=== PATIENT | female | born 1985 | race African-American/Black ===

== ENCOUNTER 2018-10-23 10:47 | Inpatient (IN) ==
[2018-10-23] MEDS ORDERED: ONDANSETRON 4 MG/2 ML VIAL IV STA ×2 (11:16→13:22)
[2018-10-23] MEDS ORDERED: MORPHINE 4 MG/1 ML VIAL IV STA (11:16)
[2018-10-23 11:30] LABS: Basophils # 0.1 10*3/uL (0.0-0.2); Basophils % 0.3 % (0.0-0.8); Eosinophils # 0.2 10*3/uL (0.0-0.87); Eosinophils % 0.9 % (0.00-10.9); Hematocrit 37.7 VOL% (35.7-47.0); Hemoglobin 12.8 GM/DL (12.0-16.0); Immature Granulocytes % 0.5 %; Lymphocytes # 2.6 10*3/uL (1.4-4.0); Lymphocytes % 11.9 % (21.3-54.2); Mean Corpuscular Hemoglobin 31 PG (27-34); Mean Corpuscular Volume 91.7 FL (87-102); Monocytes # 1.1 10*3/uL (0.11-0.8); Monocytes % 5.1 % (1.7-12.7); Neutrophils # 17.6 10*3/uL (1.4-7.4); Neutrophils % 81.3 % (38.7-73.9); Platelet Count 362 T/CUMM (130-400); Red Blood Count 4.11 MC/CUMM (3.8-5.5); Red Cell Distribution Width 13.2 % (9.3-17.3); White Blood Count 21.6 T/CUMM (4-12)
[2018-10-23 11:50] LABS: Amorphous Crystals,Urine Occasional /HPF (Few); Apearance,Urine Slightly Hazy (Clear); Bilirubin,Urine Negative (Negative); Blood, Urine Large mg/dL (Negative); Glucose,Urine (UA) Negative (Negative); Ketones,Urine Negative (Negative); Mucus,Urine Occasional /LPF (Occasional); Nitrite,Urine Negative (Negative); Protein,Urine 100 MG/DL; RBC,Urine 39 /HPF (0-4); Squamous Epithelial Cell,Urine Occasional /HPF (0-10); Urine Color Yellow (Yellow); Urine Specific Gravity 1.014 (1.001-1.035); Urine Urobilinogen < 2.0 EU/DL (0.2-1.0)
[2018-10-23 12:04] LABS: Albumin 3.1 G/DL (3.4-5.0); Bilirubin,Total 0.4 MG/DL (0.2-1.0); Calcium 8.5 MG/DL (8.5-10.1); Osmolality,Calculated 278.5 MOS/KG (273-304); Total Protein 7.8 G/DL (6.4-8.3)
[2018-10-23] MEDS ORDERED: hydrALAZINE 20 MG/1 ML VIAL IV STA (12:05)
[2018-10-23] MEDS ORDERED: MORPHINE 10 MG/1 ML VIAL IV ONE (12:05)
[2018-10-23 12:53] LABS: Eosinophils 1 % (0-10); Lymphocytes 12 % (20-55); Platelet Estimate Normal; Segmented Neutrophils 82 % (50-85); Total Cells Counted 100
[2018-10-23] MEDS ORDERED: HYDROmorphone 2 MG/1 ML VIAL IV STA (13:22)
[2018-10-23] MEDS ORDERED: cefTRIAXone 1,000 MG in SODIUM CHLORIDE 0.9% 100 ML IV STA (13:26)
[2018-10-23] MEDS ORDERED: niCARdipine 25 MG/10 ML VIAL IV ONE (13:40)
[2018-10-23] MEDS: niCARdipine INJ 50 MG in SODIUM CHLORIDE 0.9% 230 ML IV PRN ×3 (14:19→23:09)
[2018-10-23] MEDS ORDERED: cloNIDine 0.1 MG TABLET PO STA (14:58)
[2018-10-23] MEDS ORDERED: SODIUM CHLORIDE 0.9% 1,000 ML IV SCH (15:00)
[2018-10-23] MEDS: MORPHINE 4 MG/1 ML VIAL IV PRN ×2 (16:16→19:47)
[2018-10-23] MEDS: FUROSEMIDE 40 MG TABLET PO SCH (17:26)
[2018-10-23] MEDS: CARVEDILOL 12.5 MG TABLET PO SCH ×2 (17:26→21:19)
[2018-10-23] MEDS: ONDANSETRON 4 MG/2 ML VIAL IV PRN (19:50)
[2018-10-23] MEDS: MONTELUKAST 10 MG TABLET PO SCH (21:19)
[2018-10-23] MEDS: ACETAMINOPHEN 325 MG TABLET PO PRN (21:23)
[2018-10-24] MEDS: ONDANSETRON 4 MG/2 ML VIAL IV PRN ×2 (02:10→21:16)
[2018-10-24] MEDS: MORPHINE 4 MG/1 ML VIAL IV PRN ×4 (02:13→21:16)
[2018-10-24] MEDS: niCARdipine INJ 50 MG in SODIUM CHLORIDE 0.9% 230 ML IV PRN ×5 (02:50→22:20)
[2018-10-24 04:53] LABS: Basophils % 0.1 % (0.0-0.8); Eosinophils % 0.1 % (0.00-10.9); Hemoglobin 11.8 GM/DL (12.0-16.0); Immature Granulocytes % 0.4 %; Immature Granulocytes Absolute 0.07 #; Lymphocytes # 1.4 10*3/uL (1.4-4.0); Lymphocytes % 7.8 % (21.3-54.2); Mean Corpuscular HGB Conc 32.8 GM/DL (32-36); Mean Corpuscular Hemoglobin 31 PG (27-34); Mean Corpuscular Volume 94.2 FL (87-102); Mean Platelet Volume 10.4 FL (9.6-12.0); Monocytes # 1.1 10*3/uL (0.11-0.8); Monocytes % 6.1 % (1.7-12.7); Neutrophils # 14.8 10*3/uL (1.4-7.4); Neutrophils % 85.5 % (38.7-73.9); Platelet Count 309 T/CUMM (130-400); Red Blood Count 3.82 MC/CUMM (3.8-5.5); Red Cell Distribution Width 13.4 % (9.3-17.3); White Blood Count 17.4 T/CUMM (4-12)
[2018-10-24 05:12] LABS: Calcium 8.4 MG/DL (8.5-10.1); Osmolality,Calculated 280.4 MOS/KG (273-304)
[2018-10-24] MEDS: PANTOPRAZOLE 40 MG TABLET PO SCH (08:22)
[2018-10-24] MEDS: CARVEDILOL 12.5 MG TABLET PO SCH ×2 (08:22→21:16)
[2018-10-24] MEDS: FUROSEMIDE 40 MG TABLET PO SCH ×2 (08:22→15:00)
[2018-10-24] MEDS: LISINOPRIL 10 MG TABLET PO SCH (08:22)
[2018-10-24] MEDS: POTASSIUM CHLORIDE 20 MEQ TABLET PO SCH (08:22)
[2018-10-24] MEDS: cefTRIAXone 1,000 MG in SYRINGE 1 EACH IV SCH (14:55)
[2018-10-24] MEDS: MONTELUKAST 10 MG TABLET PO SCH (21:16)
[2018-10-24] MEDS: ACETAMINOPHEN 325 MG TABLET PO PRN (23:45)
[2018-10-25] MEDS: niCARdipine INJ 50 MG in SODIUM CHLORIDE 0.9% 230 ML IV PRN ×2 (04:30→12:00)
[2018-10-25 04:37] LABS: Calcium 8.2 MG/DL (8.5-10.1); Osmolality,Calculated 273.8 MOS/KG (273-304); Potassium 4.1 MMOL/L (3.5-5.1)
[2018-10-25] MEDS: ONDANSETRON 4 MG/2 ML VIAL IV PRN (05:05)
[2018-10-25] MEDS: LISINOPRIL 10 MG TABLET PO SCH (08:10)
[2018-10-25] MEDS: FUROSEMIDE 40 MG TABLET PO SCH ×2 (08:11→15:53)
[2018-10-25] MEDS: POTASSIUM CHLORIDE 20 MEQ TABLET PO SCH (08:11)
[2018-10-25] MEDS: PANTOPRAZOLE 40 MG TABLET PO SCH (08:11)
[2018-10-25] MEDS: CARVEDILOL 12.5 MG TABLET PO SCH ×2 (08:11→20:25)
[2018-10-25] MEDS ORDERED: DEXTROSE 50% 25 GM/50 ML SYRINGE IV PRN (08:29)
[2018-10-25] MEDS ORDERED: GLUCAGON 1 MG VIAL IM PRN (08:29)
[2018-10-25] MEDS: cefTRIAXone 1,000 MG in SYRINGE 1 EACH IV SCH (13:50)
[2018-10-25] MEDS: MONTELUKAST 10 MG TABLET PO SCH (20:24)
[2018-10-26 08:47] LABS: Basophils # 0.1 10*3/uL (0.0-0.2); Basophils % 0.3 % (0.0-0.8); Eosinophils # 0.2 10*3/uL (0.0-0.87); Eosinophils % 1.3 % (0.00-10.9); Hematocrit 29.7 VOL% (35.7-47.0); Hemoglobin 9.9 GM/DL (12.0-16.0); Immature Granulocytes % 0.3 %; Immature Granulocytes Absolute 0.05 #; Lymphocytes # 2.2 10*3/uL (1.4-4.0); Lymphocytes % 13.8 % (21.3-54.2); Mean Corpuscular HGB Conc 33.3 GM/DL (32-36); Mean Corpuscular Hemoglobin 31 PG (27-34); Mean Corpuscular Volume 94.3 FL (87-102); Mean Platelet Volume 9.5 FL (9.6-12.0); Monocytes # 1.1 10*3/uL (0.11-0.8); Monocytes % 6.9 % (1.7-12.7); Neutrophils # 12.2 10*3/uL (1.4-7.4); Neutrophils % 77.4 % (38.7-73.9); Platelet Count 309 T/CUMM (130-400); Red Blood Count 3.15 MC/CUMM (3.8-5.5); Red Cell Distribution Width 13.4 % (9.3-17.3); White Blood Count 15.8 T/CUMM (4-12)
[2018-10-26 09:18] LABS: Alanine Aminotransferase 14 U/L (13-56); Albumin 2.7 G/DL (3.4-5.0); Alkaline Phosphatase 68 U/L (45-117); Aspartate Amino Transferase 10 U/L (0-37); Bilirubin,Total < 0.39 MG/DL (0.2-1.0); Blood Urea Nitrogen 14 MG/DL (7-18); Calcium 8.6 MG/DL (8.5-10.1); Glucose 101 MG/DL (74-106); Osmolality,Calculated 270.1 MOS/KG (273-304); Potassium 4.3 MMOL/L (3.5-5.1); Sodium 135 MMOL/L (136-145); Total Protein 7.6 G/DL (6.4-8.3)
[2018-10-26] MEDS: POTASSIUM CHLORIDE 20 MEQ TABLET PO SCH (09:32)
[2018-10-26] MEDS: PANTOPRAZOLE 40 MG TABLET PO SCH (09:32)
[2018-10-26] MEDS: CARVEDILOL 12.5 MG TABLET PO SCH (09:32)
[2018-10-26] MEDS: FUROSEMIDE 40 MG TABLET PO SCH ×2 (09:32→16:36)
[2018-10-26] MEDS: LISINOPRIL 10 MG TABLET PO SCH (09:34)
[2018-10-26] MEDS ORDERED: CARVEDILOL 12.5 MG TABLET PO ONE (11:40)
[2018-10-26] MEDS: cefTRIAXone 1,000 MG in SYRINGE 1 EACH IV SCH (12:31)
[2018-10-26] MEDS ORDERED: hydrALAZINE 20 MG/1 ML VIAL IV PRN (13:50)
[2018-10-26] MEDS: hydrALAZINE 20 MG/1 ML VIAL IV SCH ×2 (16:36→22:05)
[2018-10-26] MEDS: CARVEDILOL 25 MG TABLET PO SCH (21:17)
[2018-10-26] MEDS: MONTELUKAST 10 MG TABLET PO SCH (21:17)
[2018-10-27] MEDS: hydrALAZINE 20 MG/1 ML VIAL IV SCH ×3 (04:00→17:15)
[2018-10-27 04:47] LABS: Basophils # 0.1 10*3/uL (0.0-0.2); Basophils % 0.3 % (0.0-0.8); Eosinophils # 0.2 10*3/uL (0.0-0.87); Hematocrit 30.2 VOL% (35.7-47.0); Immature Granulocytes % 0.4 %; Immature Granulocytes Absolute 0.06 #; Lymphocytes # 2.2 10*3/uL (1.4-4.0); Lymphocytes % 14.2 % (21.3-54.2); Mean Corpuscular HGB Conc 33.1 GM/DL (32-36); Mean Corpuscular Hemoglobin 31 PG (27-34); Mean Corpuscular Volume 93.2 FL (87-102); Mean Platelet Volume 10.2 FL (9.6-12.0); Monocytes # 1.1 10*3/uL (0.11-0.8); Neutrophils # 11.8 10*3/uL (1.4-7.4); Neutrophils % 77.1 % (38.7-73.9); Platelet Count 373 T/CUMM (130-400); Red Blood Count 3.24 MC/CUMM (3.8-5.5); Red Cell Distribution Width 13.3 % (9.3-17.3); White Blood Count 15.3 T/CUMM (4-12)
[2018-10-27 05:04] LABS: Calcium 8.9 MG/DL (8.5-10.1); Osmolality,Calculated 273.8 MOS/KG (273-304); Potassium 4.3 MMOL/L (3.5-5.1)
[2018-10-27] MEDS: CARVEDILOL 25 MG TABLET PO SCH ×2 (08:50→21:04)
[2018-10-27] MEDS: FUROSEMIDE 40 MG TABLET PO SCH ×2 (08:50→17:10)
[2018-10-27] MEDS: TELMISARTAN 40 MG TABLET PO SCH (08:50)
[2018-10-27] MEDS: PANTOPRAZOLE 40 MG TABLET PO SCH (08:50)
[2018-10-27] MEDS: POTASSIUM CHLORIDE 20 MEQ TABLET PO SCH (08:50)
[2018-10-27] MEDS: ACETAMINOPHEN 325 MG TABLET PO PRN (08:56)
[2018-10-27] MEDS ORDERED: LISINOPRIL 20 MG TABLET PO SCH (09:00)
[2018-10-27] MEDS ORDERED: LISINOPRIL 10 MG TABLET PO ONE (11:41)
[2018-10-27] MEDS: cefTRIAXone 1,000 MG in SYRINGE 1 EACH IV SCH (13:08)
[2018-10-27] MEDS: MONTELUKAST 10 MG TABLET PO SCH (21:04)
[2018-10-28] MEDS ORDERED: LABETALOL 20 MG/4 ML SYRINGE IV SCH
[2018-10-28] MEDS: hydrALAZINE 10 MG TABLET PO SCH ×2 (01:16→08:28)
[2018-10-28 04:08] VITALS: BP 139/94
[2018-10-28 04:37] LABS: Basophils # 0.1 10*3/uL (0.0-0.2); Basophils % 0.3 % (0.0-0.8); Eosinophils # 0.2 10*3/uL (0.0-0.87); Eosinophils % 1.2 % (0.00-10.9); Hematocrit 31.6 VOL% (35.7-47.0); Hemoglobin 10.4 GM/DL (12.0-16.0); Immature Granulocytes % 0.4 %; Immature Granulocytes Absolute 0.07 #; Lymphocytes # 2.6 10*3/uL (1.4-4.0); Lymphocytes % 15.8 % (21.3-54.2); Mean Corpuscular HGB Conc 32.9 GM/DL (32-36); Mean Corpuscular Hemoglobin 31 PG (27-34); Mean Corpuscular Volume 92.7 FL (87-102); Mean Platelet Volume 10.1 FL (9.6-12.0); Monocytes # 1.4 10*3/uL (0.11-0.8); Monocytes % 8.2 % (1.7-12.7); Neutrophils # 12.2 10*3/uL (1.4-7.4); Neutrophils % 74.1 % (38.7-73.9); Platelet Count 409 T/CUMM (130-400); Red Blood Count 3.41 MC/CUMM (3.8-5.5); Red Cell Distribution Width 13.2 % (9.3-17.3); White Blood Count 16.5 T/CUMM (4-12)
[2018-10-28 04:54] LABS: Calcium 9.2 MG/DL (8.5-10.1); Osmolality,Calculated 273.8 MOS/KG (273-304)
[2018-10-28] MEDS: CARVEDILOL 25 MG TABLET PO SCH (08:28)
[2018-10-28] MEDS: POTASSIUM CHLORIDE 20 MEQ TABLET PO SCH (08:28)
[2018-10-28] MEDS: PANTOPRAZOLE 40 MG TABLET PO SCH (08:28)
[2018-10-28] MEDS: FUROSEMIDE 40 MG TABLET PO SCH (08:28)
[2018-10-28] MEDS: TELMISARTAN 40 MG TABLET PO SCH (08:28)
[2018-10-28] MEDS: ACETAMINOPHEN 325 MG TABLET PO PRN (10:12)
[2018-10-28] MEDS ORDERED: LACTULOSE 20 GM/30 ML UDCUP PO ONE (10:30)
== END 2018-10-28 13:38 | disposition home or self-care (01) | DRG 468 ==
LOC: EDUNIT# → EDBD → N.ED 10:47 → N.2E 15:42 → SUATTDRO 15:42 → N.3E 15:54 → N.CC 16:09
PROVIDERS: ADMIT Internal Medicine; ATTEND Internal Medicine

== ENCOUNTER 2019-10-18 14:26 | Inpatient (IN) ==
[2019-10-18] MEDS ORDERED: HYDROmorphone 2 MG/1 ML VIAL IV STA (14:43)
[2019-10-18] MEDS ORDERED: ONDANSETRON 4 MG/2 ML VIAL IV STA (14:43)
[2019-10-18] MEDS ORDERED: SODIUM CHLORIDE 0.9% 1,000 ML IV STA (14:43)
[2019-10-18] MEDS ORDERED: fentaNYL 100 MCG/2 ML VIAL IV STA ×3 (14:45→16:44)
[2019-10-18 15:07] LABS: Basophils % 0.2 % (0.0-0.8); Eosinophils % 0.1 % (0.00-10.9); Hematocrit 41.1 VOL% (35.7-47.0); Hemoglobin 14.4 GM/DL (12.0-16.0); Immature Granulocytes % 0.4 %; Immature Granulocytes Absolute 0.08 #; Lymphocytes % 10.7 % (21.3-54.2); Mean Corpuscular Volume 88.2 FL (87-102); Monocytes % 4.4 % (1.7-12.7); Neutrophils % 84.2 % (38.7-73.9); Platelet Count 404 T/CUMM (130-400); Red Blood Count 4.66 MC/CUMM (3.8-5.5); Red Cell Distribution Width 15.5 % (9.3-17.3); White Blood Count 18.8 T/CUMM (4-12)
[2019-10-18 15:28] LABS: Albumin 3.3 G/DL (3.4-5.0); Bilirubin,Total 0.7 MG/DL (0.2-1.0); Calcium 8.8 MG/DL (8.5-10.1); Osmolality,Calculated 269.1 MOS/KG (273-304); Total Protein 8.5 G/DL (6.4-8.3)
[2019-10-18] MEDS ORDERED: PROMETHAZINE 25 MG/1 ML VIAL ONE (15:53)
[2019-10-18 15:59] LABS: Apearance,Urine CLEAR (Clear); Bacteria,Urine Occasional /HPF (Few); Bilirubin,Urine Negative (Negative); Blood, Urine Negative (Negative); Glucose,Urine (UA) Negative (Negative); Ketones,Urine Negative (Negative); Mucus,Urine Occasional /LPF (Occasional); Nitrite,Urine Negative (Negative); Protein,Urine 100 MG/DL; RBC,Urine 1 /HPF (0-4); Squamous Epithelial Cell,Urine Occasional /HPF (0-10); Urine Color Yellow (Yellow); Urine Specific Gravity 1.015 (1.001-1.035); WBC,Urine 3 /HPF (0-6)
[2019-10-18] MEDS ORDERED: PROMETHAZINE 25 MG/1 ML VIAL IM STA (16:09)
[2019-10-18] MEDS ORDERED: niCARdipine INJ 25 MG in SODIUM CHLORIDE 0.9% 240 ML IV PRN (16:44)
[2019-10-18] MEDS ORDERED: niCARdipine 25 MG/10 ML VIAL IV ONE ×2 (16:53→19:10)
[2019-10-18] MEDS ORDERED: LACTULOSE 20 GM/30 ML UDCUP PO PRN (17:28)
[2019-10-18] MEDS ORDERED: PROMETHAZINE 25 MG/1 ML VIAL IM PRN (17:28)
[2019-10-18] MEDS: HYDROmorphone 2 MG/1 ML VIAL IV PRN (19:10)
[2019-10-18] MEDS ORDERED: BISMUTH SUBSALICYLATE 30 ML/524 MG 240 ML/BOTTLE PO PRN (19:31)
[2019-10-18] MEDS ORDERED: ACETAMINOPHEN 325 MG TABLET PO PRN (19:31)
[2019-10-18] MEDS ORDERED: niCARdipine INJ 50 MG in SODIUM CHLORIDE 0.9% 480 ML IV PRN (20:06)
[2019-10-18] MEDS: cefTRIAXone 1,000 MG in SYRINGE 1 EACH IV SCH (20:24)
[2019-10-18] MEDS: SODIUM CHLORIDE 0.9% 1,000 ML IV SCH (20:30)
[2019-10-18] MEDS: MONTELUKAST 10 MG TABLET PO SCH (20:30)
[2019-10-18] MEDS: FUROSEMIDE 40 MG TABLET PO SCH (20:31)
[2019-10-18] MEDS: carvediloL 12.5 MG TABLET PO SCH (20:31)
[2019-10-18] MEDS: hydrALAZINE 25 MG TABLET PO SCH (20:31)
[2019-10-18] MEDS: traMADol 50 MG TABLET PO PRN (21:08)
[2019-10-19 06:26] LABS: Basophils % 0.2 % (0.0-0.8); Eosinophils % 0.1 % (0.00-10.9); Hematocrit 40.7 VOL% (35.7-47.0); Hemoglobin 13.5 GM/DL (12.0-16.0); Immature Granulocytes % 0.4 %; Lymphocytes # 1.9 10*3/uL (1.4-4.0); Lymphocytes % 7.9 % (21.3-54.2); Mean Corpuscular HGB Conc 33.2 GM/DL (32-36); Mean Corpuscular Volume 90.8 FL (87-102); Neutrophils % 84.4 % (38.7-73.9); Platelet Count 351 T/CUMM (130-400); Red Blood Count 4.48 MC/CUMM (3.8-5.5); Red Cell Distribution Width 15.5 % (9.3-17.3); White Blood Count 23.5 T/CUMM (4-12)
[2019-10-19 06:42] LABS: Calcium 8.3 MG/DL (8.5-10.1); Osmolality,Calculated 269.1 MOS/KG (273-304)
[2019-10-19 06:52] LABS: Lymphocytes 10 % (20-55); Segmented Neutrophils 86 % (50-85); Total Cells Counted 100
[2019-10-19 06:53] LABS: Hypochromasia 1+; Platelet Estimate Adequate
[2019-10-19] MEDS: hydrALAZINE 25 MG TABLET PO SCH ×2 (08:10→20:27)
[2019-10-19] MEDS: PANTOPRAZOLE 40 MG TABLET PO SCH (08:10)
[2019-10-19] MEDS: carvediloL 12.5 MG TABLET PO SCH ×2 (08:10→16:01)
[2019-10-19] MEDS: LOSARTAN 50 MG TABLET PO SCH (08:10)
[2019-10-19] MEDS: HYDROmorphone 2 MG/1 ML VIAL IV PRN ×2 (08:10)
[2019-10-19] MEDS: POTASSIUM CHLORIDE 20 MEQ TABLET PO SCH (08:10)
[2019-10-19] MEDS: FUROSEMIDE 40 MG TABLET PO SCH ×2 (08:10→16:01)
[2019-10-19] MEDS: ONDANSETRON 4 MG/2 ML VIAL IV PRN ×2 (08:16→12:47)
[2019-10-19] MEDS: traMADol 50 MG TABLET PO PRN ×2 (10:37→20:55)
[2019-10-19] MEDS: SODIUM CHLORIDE 0.9% 1,000 ML IV SCH (10:51)
[2019-10-19] MEDS: cefTRIAXone 1,000 MG in SYRINGE 1 EACH IV SCH (18:11)
[2019-10-19] MEDS: MONTELUKAST 10 MG TABLET PO SCH (20:27)
[2019-10-20] MEDS: SODIUM CHLORIDE 0.9% 1,000 ML IV SCH (05:21)
[2019-10-20 05:35] LABS: Basophils % 0.2 % (0.0-0.8); Eosinophils # 0.1 10*3/uL (0.0-0.87); Eosinophils % 0.3 % (0.00-10.9); Hematocrit 35.9 VOL% (35.7-47.0); Hemoglobin 11.9 GM/DL (12.0-16.0); Immature Granulocytes % 0.5 %; Immature Granulocytes Absolute 0.12 #; Lymphocytes # 1.9 10*3/uL (1.4-4.0); Mean Corpuscular HGB Conc 33.1 GM/DL (32-36); Monocytes % 6.1 % (1.7-12.7); Neutrophils % 84.9 % (38.7-73.9); Platelet Count 228 T/CUMM (130-400); Red Blood Count 3.86 MC/CUMM (3.8-5.5); Red Cell Distribution Width 15.5 % (9.3-17.3); White Blood Count 23.4 T/CUMM (4-12)
[2019-10-20 05:48] LABS: Band Neutrophils 1 % (0-10); Hypochromasia 1+; Lymphocytes 10 % (20-55); Segmented Neutrophils 83 % (50-85); Total Cells Counted 100
[2019-10-20 05:49] LABS: Macrocytosis Slight
[2019-10-20 06:14] LABS: Osmolality,Calculated 265.5 MOS/KG (273-304)
[2019-10-20] MEDS: traMADol 50 MG TABLET PO PRN (08:43)
[2019-10-20] MEDS: hydrALAZINE 25 MG TABLET PO SCH ×2 (08:43→20:50)
[2019-10-20] MEDS: PANTOPRAZOLE 40 MG TABLET PO SCH (08:46)
[2019-10-20] MEDS: POTASSIUM CHLORIDE 20 MEQ TABLET PO SCH (08:46)
[2019-10-20] MEDS: carvediloL 12.5 MG TABLET PO SCH ×2 (08:47→17:48)
[2019-10-20] MEDS: LOSARTAN 50 MG TABLET PO SCH (08:47)
[2019-10-20] MEDS: FUROSEMIDE 40 MG TABLET PO SCH ×2 (08:47→15:07)
[2019-10-20] MEDS: ONDANSETRON 4 MG/2 ML VIAL IV PRN (08:47)
[2019-10-20] MEDS ORDERED: DIAZEPAM 5 MG TABLET PO ONE (13:53)
[2019-10-20] MEDS: PIPERACILLIN/TAZOBACTAM 3,375 MG in SODIUM CHLORIDE 0.9% 100 ML IV SCH ×2 (15:07→20:49)
[2019-10-20] MEDS: MONTELUKAST 10 MG TABLET PO SCH (20:49)
[2019-10-21] MEDS: PIPERACILLIN/TAZOBACTAM 3,375 MG in SODIUM CHLORIDE 0.9% 100 ML IV SCH ×3 (04:59→21:32)
[2019-10-21 05:36] LABS: Basophils # 0.1 10*3/uL (0.0-0.2); Basophils % 0.2 % (0.0-0.8); Eosinophils # 0.1 10*3/uL (0.0-0.87); Eosinophils % 0.6 % (0.00-10.9); Hematocrit 35.6 VOL% (35.7-47.0); Hemoglobin 11.8 GM/DL (12.0-16.0); Immature Granulocytes Absolute 0.24 #; Lymphocytes # 2.3 10*3/uL (1.4-4.0); Lymphocytes % 9.5 % (21.3-54.2); Mean Corpuscular HGB Conc 33.1 GM/DL (32-36); Mean Corpuscular Volume 92.7 FL (87-102); Mean Platelet Volume 9.9 FL (9.6-12.0); Monocytes % 6.2 % (1.7-12.7); Neutrophils % 82.5 % (38.7-73.9); Platelet Count 301 T/CUMM (130-400); Red Blood Count 3.84 MC/CUMM (3.8-5.5); Red Cell Distribution Width 14.8 % (9.3-17.3); White Blood Count 24.1 T/CUMM (4-12)
[2019-10-21 06:07] LABS: Albumin 2.3 G/DL (3.4-5.0); Calcium 8.7 MG/DL (8.5-10.1); Osmolality,Calculated 268.1 MOS/KG (273-304); Total Protein 7.5 G/DL (6.4-8.3)
[2019-10-21 06:08] LABS: Eosinophils 4 % (0-10); Hypochromasia 1+; Lymphocytes 6 % (20-55); Platelet Estimate Adequate; Segmented Neutrophils 85 % (50-85); Total Cells Counted 100
[2019-10-21 06:09] LABS: Macrocytosis Slight
[2019-10-21] MEDS: carvediloL 12.5 MG TABLET PO SCH ×2 (08:45→16:09)
[2019-10-21] MEDS: hydrALAZINE 25 MG TABLET PO SCH ×2 (08:45→21:32)
[2019-10-21] MEDS: FUROSEMIDE 40 MG TABLET PO SCH ×2 (08:45→16:09)
[2019-10-21] MEDS: LOSARTAN 50 MG TABLET PO SCH (08:45)
[2019-10-21] MEDS: POTASSIUM CHLORIDE 20 MEQ TABLET PO SCH (08:46)
[2019-10-21] MEDS: PANTOPRAZOLE 40 MG TABLET PO SCH (08:46)
[2019-10-21] MEDS: traMADol 50 MG TABLET PO PRN (21:32)
[2019-10-21] MEDS: MONTELUKAST 10 MG TABLET PO SCH (21:32)
[2019-10-22] MEDS: SODIUM CHLORIDE 0.9% 1,000 ML IV SCH ×2 (02:20→13:00)
[2019-10-22 04:50] LABS: Basophils # 0.1 10*3/uL (0.0-0.2); Basophils % 0.3 % (0.0-0.8); Eosinophils # 0.2 10*3/uL (0.0-0.87); Eosinophils % 0.9 % (0.00-10.9); Hematocrit 33.8 VOL% (35.7-47.0); Hemoglobin 11.2 GM/DL (12.0-16.0); Immature Granulocytes % 0.6 %; Immature Granulocytes Absolute 0.13 #; Lymphocytes # 2.2 10*3/uL (1.4-4.0); Lymphocytes % 9.7 % (21.3-54.2); Mean Corpuscular HGB Conc 33.1 GM/DL (32-36); Mean Corpuscular Volume 91.6 FL (87-102); Mean Platelet Volume 9.4 FL (9.6-12.0); Monocytes % 6.4 % (1.7-12.7); Neutrophils % 82.1 % (38.7-73.9); Platelet Count 310 T/CUMM (130-400); Red Blood Count 3.69 MC/CUMM (3.8-5.5); Red Cell Distribution Width 14.5 % (9.3-17.3); White Blood Count 22.7 T/CUMM (4-12)
[2019-10-22] MEDS: PIPERACILLIN/TAZOBACTAM 3,375 MG in SODIUM CHLORIDE 0.9% 100 ML IV SCH ×3 (05:14→20:00)
[2019-10-22 05:16] LABS: Albumin 2.2 G/DL (3.4-5.0); Bilirubin,Total 1.3 MG/DL (0.2-1.0); Calcium 8.7 MG/DL (8.5-10.1); Osmolality,Calculated 269.1 MOS/KG (273-304); Total Protein 7.5 G/DL (6.4-8.3)
[2019-10-22 05:30] LABS: Anisocytosis Slight; Lymphocytes 13 % (20-55); Macrocytosis Slight; Platelet Estimate Normal; Segmented Neutrophils 82 % (50-85); Total Cells Counted 100
[2019-10-22] MEDS: FUROSEMIDE 40 MG TABLET PO SCH ×2 (08:25→16:03)
[2019-10-22] MEDS: carvediloL 12.5 MG TABLET PO SCH ×2 (08:25→16:03)
[2019-10-22] MEDS: POTASSIUM CHLORIDE 20 MEQ TABLET PO SCH (08:26)
[2019-10-22] MEDS: PANTOPRAZOLE 40 MG TABLET PO SCH (08:26)
[2019-10-22] MEDS: LOSARTAN 50 MG TABLET PO SCH (08:26)
[2019-10-22] MEDS: hydrALAZINE 25 MG TABLET PO SCH ×2 (08:26→20:01)
[2019-10-22] MEDS ORDERED: ONDANSETRON 4 MG/2 ML VIAL ONE (11:37)
[2019-10-22] MEDS ORDERED: HYDROmorphone 2 MG/1 ML VIAL ONE (11:37)
[2019-10-22] MEDS: HYDROmorphone 2 MG/1 ML VIAL IV PRN ×2 (11:40→11:45)
[2019-10-22] MEDS ORDERED: propofoL 200 MG/20 ML VIAL IV ONE (11:44)
[2019-10-22] MEDS ORDERED: KETAMINE 500 MG/10 ML VIAL ONE (11:44)
[2019-10-22] MEDS ORDERED: MIDAZOLAM 2 MG/2 ML VIAL ONE (11:45)
[2019-10-22] MEDS ORDERED: LIDOCAINE 2% 5 ML VIAL ONE (11:45)
[2019-10-22] MEDS ORDERED: fentaNYL 100 MCG/2 ML VIAL ONE (11:45)
[2019-10-22] MEDS ORDERED: SODIUM CHLORIDE 0.9% 100 ML IV ONE (11:45)
[2019-10-22] MEDS ORDERED: LACTATED RINGERS 1,000 ML IV ONE (11:45)
[2019-10-22] MEDS ORDERED: ONDANSETRON 4 MG/2 ML VIAL IV PRN (12:00)
[2019-10-22] MEDS: traMADol 50 MG TABLET PO PRN (18:28)
[2019-10-22] MEDS: MONTELUKAST 10 MG TABLET PO SCH (20:01)
[2019-10-23 05:00] LABS: Basophils # 0.1 10*3/uL (0.0-0.2); Basophils % 0.3 % (0.0-0.8); Eosinophils # 0.4 10*3/uL (0.0-0.87); Eosinophils % 2.4 % (0.00-10.9); Hematocrit 34.6 VOL% (35.7-47.0); Hemoglobin 11.6 GM/DL (12.0-16.0); Immature Granulocytes % 0.5 %; Immature Granulocytes Absolute 0.07 #; Lymphocytes # 2.4 10*3/uL (1.4-4.0); Mean Corpuscular HGB Conc 33.5 GM/DL (32-36); Mean Corpuscular Volume 90.6 FL (87-102); Mean Platelet Volume 9.7 FL (9.6-12.0); Monocytes % 6.8 % (1.7-12.7); Platelet Count 322 T/CUMM (130-400); Red Blood Count 3.82 MC/CUMM (3.8-5.5); Red Cell Distribution Width 14.5 % (9.3-17.3); White Blood Count 14.4 T/CUMM (4-12)
[2019-10-23 05:35] LABS: Albumin 2.2 G/DL (3.4-5.0); Bilirubin,Total 0.8 MG/DL (0.2-1.0); Calcium 8.8 MG/DL (8.5-10.1); Osmolality,Calculated 266.4 MOS/KG (273-304); Total Protein 7.3 G/DL (6.4-8.3)
[2019-10-23] MEDS: PIPERACILLIN/TAZOBACTAM 3,375 MG in SODIUM CHLORIDE 0.9% 100 ML IV SCH ×3 (05:50→20:50)
[2019-10-23] MEDS: LOSARTAN 50 MG TABLET PO SCH (08:53)
[2019-10-23] MEDS: FUROSEMIDE 40 MG TABLET PO SCH ×2 (08:53→17:10)
[2019-10-23] MEDS: PANTOPRAZOLE 40 MG TABLET PO SCH (08:53)
[2019-10-23] MEDS: POTASSIUM CHLORIDE 20 MEQ TABLET PO SCH (08:53)
[2019-10-23] MEDS: carvediloL 12.5 MG TABLET PO SCH ×2 (08:53→17:10)
[2019-10-23] MEDS: hydrALAZINE 25 MG TABLET PO SCH ×2 (08:53→20:50)
[2019-10-23] MEDS: SODIUM CHLORIDE 0.9% 1,000 ML IV SCH ×2 (11:37→11:38)
[2019-10-23] MEDS: MONTELUKAST 10 MG TABLET PO SCH (20:50)
[2019-10-23] MEDS: ONDANSETRON 4 MG/2 ML VIAL IV PRN (22:12)
[2019-10-24] MEDS: SODIUM CHLORIDE 0.9% 1,000 ML IV SCH ×2 (01:38→12:16)
[2019-10-24 05:59] LABS: Basophils # 0.1 10*3/uL (0.0-0.2); Basophils % 0.5 % (0.0-0.8); Eosinophils # 0.4 10*3/uL (0.0-0.87); Eosinophils % 2.9 % (0.00-10.9); Hematocrit 36.5 VOL% (35.7-47.0); Hemoglobin 12.1 GM/DL (12.0-16.0); Immature Granulocytes % 0.6 %; Immature Granulocytes Absolute 0.08 #; Lymphocytes # 2.7 10*3/uL (1.4-4.0); Lymphocytes % 21.4 % (21.3-54.2); Mean Corpuscular HGB Conc 33.2 GM/DL (32-36); Mean Corpuscular Volume 91.7 FL (87-102); Mean Platelet Volume 9.5 FL (9.6-12.0); Monocytes % 7.4 % (1.7-12.7); Neutrophils % 67.2 % (38.7-73.9); Platelet Count 361 T/CUMM (130-400); Red Blood Count 3.98 MC/CUMM (3.8-5.5); Red Cell Distribution Width 14.3 % (9.3-17.3); White Blood Count 12.6 T/CUMM (4-12)
[2019-10-24] MEDS: PIPERACILLIN/TAZOBACTAM 3,375 MG in SODIUM CHLORIDE 0.9% 100 ML IV SCH ×3 (06:03→20:13)
[2019-10-24 06:11] LABS: Albumin 2.3 G/DL (3.4-5.0); Bilirubin,Total 0.8 MG/DL (0.2-1.0); Calcium 9.3 MG/DL (8.5-10.1); Osmolality,Calculated 266.2 MOS/KG (273-304); Total Protein 7.6 G/DL (6.4-8.3)
[2019-10-24] MEDS: LOSARTAN 50 MG TABLET PO SCH (08:34)
[2019-10-24] MEDS: hydrALAZINE 25 MG TABLET PO SCH ×2 (08:34→20:10)
[2019-10-24] MEDS: POTASSIUM CHLORIDE 20 MEQ TABLET PO SCH (08:34)
[2019-10-24] MEDS: carvediloL 12.5 MG TABLET PO SCH ×2 (08:34→16:37)
[2019-10-24] MEDS: PANTOPRAZOLE 40 MG TABLET PO SCH (08:34)
[2019-10-24] MEDS: FUROSEMIDE 40 MG TABLET PO SCH ×2 (08:35→16:37)
[2019-10-24] MEDS: MONTELUKAST 10 MG TABLET PO SCH (20:10)
[2019-10-25] MEDS: PIPERACILLIN/TAZOBACTAM 3,375 MG in SODIUM CHLORIDE 0.9% 100 ML IV SCH (05:48)
[2019-10-25 07:37] LABS: Basophils # 0.1 10*3/uL (0.0-0.2); Basophils % 0.5 % (0.0-0.8); Eosinophils # 0.3 10*3/uL (0.0-0.87); Eosinophils % 2.1 % (0.00-10.9); Hematocrit 37.6 VOL% (35.7-47.0); Hemoglobin 12.3 GM/DL (12.0-16.0); Immature Granulocytes % 0.5 %; Immature Granulocytes Absolute 0.07 #; Lymphocytes # 2.7 10*3/uL (1.4-4.0); Lymphocytes % 18.2 % (21.3-54.2); Mean Corpuscular HGB Conc 32.7 GM/DL (32-36); Mean Corpuscular Volume 91.9 FL (87-102); Mean Platelet Volume 9.4 FL (9.6-12.0); Monocytes % 6.4 % (1.7-12.7); Neutrophils % 72.3 % (38.7-73.9); Platelet Count 428 T/CUMM (130-400); Red Blood Count 4.09 MC/CUMM (3.8-5.5); Red Cell Distribution Width 14.4 % (9.3-17.3)
[2019-10-25 08:10] LABS: Albumin 2.4 G/DL (3.4-5.0); Bilirubin,Total 0.4 MG/DL (0.2-1.0); Calcium 9.2 MG/DL (8.5-10.1); Osmolality,Calculated 268.1 MOS/KG (273-304)
[2019-10-25] MEDS: LOSARTAN 50 MG TABLET PO SCH (10:02)
[2019-10-25] MEDS: carvediloL 12.5 MG TABLET PO SCH (10:02)
[2019-10-25] MEDS: POTASSIUM CHLORIDE 20 MEQ TABLET PO SCH (10:02)
[2019-10-25] MEDS: hydrALAZINE 25 MG TABLET PO SCH (10:02)
[2019-10-25] MEDS: FUROSEMIDE 40 MG TABLET PO SCH (10:02)
[2019-10-25] MEDS: PANTOPRAZOLE 40 MG TABLET PO SCH (10:02)
[2019-10-25 11:36] VITALS: BP 132/96
== END 2019-10-25 13:20 | disposition home or self-care (01) ==
LOC: N.ED 14:26 → N.EDINP 17:25 → SUATTDRO 17:25 → N.ICU 18:09 → N.2E 10-19 13:35
PROVIDERS: ADMIT Internal Medicine; ATTEND Internal Medicine

== ENCOUNTER 2020-11-08 14:24 | Inpatient (IN) ==
[2020-11-08 15:15] LABS: Basophils # 0.1 10*3/uL (0.0-0.2); Basophils % 0.2 % (0.0-0.8); Eosinophils % 0.2 % (0.00-10.9); Hematocrit 40.1 VOL% (35.7-47.0); Hemoglobin 13.3 GM/DL (12.0-16.0); Immature Granulocytes % 0.7 %; Immature Granulocytes Absolute 0.17 #; Lymphocytes # 1.9 10*3/uL (1.4-4.0); Lymphocytes % 7.5 % (21.3-54.2); Mean Corpuscular HGB Conc 33.2 GM/DL (32-36); Mean Corpuscular Volume 95.2 FL (87-102); Mean Platelet Volume 8.9 FL (9.6-12.0); Monocytes % 4.3 % (1.7-12.7); Neutrophils % 87.1 % (38.7-73.9); Platelet Count 321 T/CUMM (130-400); Red Blood Count 4.21 MC/CUMM (3.8-5.5); Red Cell Distribution Width 15.1 % (9.3-17.3); White Blood Count 25.1 T/CUMM (4-12)
[2020-11-08 16:02] LABS: Anisocytosis 1+; Hypochromasia 1+; Lymphocytes 9 % (20-55); Polychromasia 1+; Segmented Neutrophils 87 % (50-85); Total Cells Counted 100
[2020-11-08 16:03] LABS: Albumin 3.1 G/DL (3.4-5.0); Bilirubin,Total 0.5 MG/DL (0.2-1.0); Calcium 8.3 MG/DL (8.5-10.1); Osmolality,Calculated 269.1 MOS/KG (273-304); Platelet Estimate Adequate; Potassium 4.1 MMOL/L (3.5-5.1); Total Protein 8.9 G/DL (5.0-7.5)
[2020-11-08] MEDS ORDERED: FUROSEMIDE 40 MG/4 ML VIAL IV STA (16:24)
[2020-11-08] MEDS ORDERED: DEXTROSE 50% 25 GM/50 ML VIAL IV PRN (17:42)
[2020-11-08] MEDS ORDERED: ZALEPLON 5 MG CAPSULE PO PRN (17:42)
[2020-11-08] MEDS ORDERED: DOCUSATE SODIUM 100 MG CAPSULE PO PRN (17:42)
[2020-11-08] MEDS ORDERED: GLUCAGON 1 MG VIAL IM PRN (17:42)
[2020-11-08] MEDS ORDERED: ONDANSETRON 4 MG/2 ML VIAL IV PRN (17:42)
[2020-11-08] MEDS ORDERED: hydrALAZINE 20 MG/1 ML VIAL IV PRN (17:42)
[2020-11-08 17:46] LABS: PT Patient Result 10.7 SECS (9.8-11.9)
[2020-11-08] MEDS ORDERED: MAGNESIUM SULF RIDER 2 GM in PREMIX 1 EACH IV PRN (17:50)
[2020-11-08] MEDS ORDERED: MAGNESIUM SULF RIDER 4 GM in PREMIX 1 EACH IV PRN (17:50)
[2020-11-08 17:52] LABS: Ferritin 69.4 ng/ml (8-252)
[2020-11-08] MEDS ORDERED: POTASSIUM CHLORIDE 20 MEQ TABLET PO PRN (17:52)
[2020-11-08] MEDS ORDERED: AZITHROMYCIN INJ 500 MG in SODIUM CHLORIDE 0.9% 250 ML IV SCH (18:00)
[2020-11-08] MEDS: ACETAMINOPHEN 325 MG TABLET PO PRN (20:48)
[2020-11-08] MEDS: hydrALAZINE 25 MG TABLET PO SCH (20:49)
[2020-11-08] MEDS: guaiFENesin/DM ER 600-30 MG TABLET PO SCH (20:49)
[2020-11-08] MEDS: ENOXAPARIN 40 MG/0.4 ML SYRINGE SUBCUT SCH (20:51)
[2020-11-08] MEDS: cefTRIAXone 1,000 MG in SYRINGE 1 EACH IV SCH (20:52)
[2020-11-09] MEDS: ACETAMINOPHEN 325 MG TABLET PO PRN (04:19)
[2020-11-09 05:20] LABS: Basophils # 0.1 10*3/uL (0.0-0.2); Basophils % 0.3 % (0.0-0.8); Eosinophils % 0.2 % (0.00-10.9); Hematocrit 38.3 VOL% (35.7-47.0); Hemoglobin 12.6 GM/DL (12.0-16.0); Immature Granulocytes % 0.5 %; Lymphocytes # 2.5 10*3/uL (1.4-4.0); Lymphocytes % 12.6 % (21.3-54.2); Mean Corpuscular HGB Conc 32.9 GM/DL (32-36); Mean Platelet Volume 9.7 FL (9.6-12.0); Monocytes % 3.6 % (1.7-12.7); NRBC # 0.05 10*3/uL; Neutrophils % 82.8 % (38.7-73.9); Platelet Count 308 T/CUMM (130-400); Red Blood Count 4.03 MC/CUMM (3.8-5.5); Red Cell Distribution Width 15.1 % (9.3-17.3); White Blood Count 19.5 T/CUMM (4-12)
[2020-11-09 06:07] LABS: Calcium 7.9 MG/DL (8.5-10.1); Osmolality,Calculated 279.5 MOS/KG (273-304); Potassium 3.5 MMOL/L (3.5-5.1); Risk Ratio 3.35; Thyroid Stimulating Hormone 1.21 uIU/ml (0.358-3.74)
[2020-11-09] MEDS ORDERED: FUROSEMIDE 40 MG/4 ML VIAL IV SCH (08:00)
[2020-11-09] MEDS: AZITHROMYCIN 250 MG TABLET PO SCH (08:27)
[2020-11-09] MEDS: LOSARTAN 50 MG TABLET PO SCH (08:28)
[2020-11-09] MEDS: POTASSIUM CHLORIDE 20 MEQ TABLET PO SCH (08:28)
[2020-11-09] MEDS: hydrALAZINE 25 MG TABLET PO SCH ×2 (08:28→21:06)
[2020-11-09] MEDS: PANTOPRAZOLE 40 MG TABLET PO SCH (08:28)
[2020-11-09] MEDS: carvediloL 25 MG TABLET PO SCH (08:28)
[2020-11-09] MEDS: guaiFENesin/DM ER 600-30 MG TABLET PO SCH ×2 (08:28→21:07)
[2020-11-09] MEDS: cefTRIAXone 1,000 MG in SYRINGE 1 EACH IV SCH (10:24)
[2020-11-09] MEDS: ENOXAPARIN 40 MG/0.4 ML SYRINGE SUBCUT SCH (10:25)
[2020-11-09] MEDS: THEOPHYLLINE ER (24 HR) 400 MG CAPSULE PO SCH (10:25)
[2020-11-09 13:51] LABS: ABG HCO3 26.2 MMOL/L (20-26); ABG Oxygen Saturation 97.6 % (95-100); ABG PCO2 43.9 MM HG (35-48); ABG PH 7.401 (7.35-7.45); ABG PO2 93.6 MM HG (80-95); ABG TCO2 23.9 MMOL/L (23-27)
[2020-11-09] MEDS: BUDESONIDE/FORMOTEROL 160-4.5 INHALER 6 GM INH SCH (21:07)
[2020-11-10 05:47] LABS: Basophils # 0.1 10*3/uL (0.0-0.2); Basophils % 0.3 % (0.0-0.8); Eosinophils # 0.1 10*3/uL (0.0-0.87); Eosinophils % 0.8 % (0.00-10.9); Hematocrit 36.1 VOL% (35.7-47.0); Hemoglobin 12.1 GM/DL (12.0-16.0); Immature Granulocytes % 0.4 %; Immature Granulocytes Absolute 0.07 #; Lymphocytes # 3.3 10*3/uL (1.4-4.0); Lymphocytes % 20.1 % (21.3-54.2); Mean Corpuscular HGB Conc 33.5 GM/DL (32-36); Mean Corpuscular Volume 94.3 FL (87-102); Mean Platelet Volume 9.8 FL (9.6-12.0); Monocytes % 5.5 % (1.7-12.7); NRBC # 0.02 10*3/uL; Neutrophils % 72.9 % (38.7-73.9); Platelet Count 311 T/CUMM (130-400); Red Blood Count 3.83 MC/CUMM (3.8-5.5); Red Cell Distribution Width 15.2 % (9.3-17.3); White Blood Count 16.3 T/CUMM (4-12)
[2020-11-10 06:09] LABS: Osmolality,Calculated 276.7 MOS/KG (273-304); Potassium 3.8 MMOL/L (3.5-5.1)
[2020-11-10] MEDS: THEOPHYLLINE ER (24 HR) 400 MG CAPSULE PO SCH (08:31)
[2020-11-10] MEDS: PANTOPRAZOLE 40 MG TABLET PO SCH (08:31)
[2020-11-10] MEDS: LOSARTAN 50 MG TABLET PO SCH (08:31)
[2020-11-10] MEDS: POTASSIUM CHLORIDE 20 MEQ TABLET PO SCH (08:31)
[2020-11-10] MEDS: guaiFENesin/DM ER 600-30 MG TABLET PO SCH ×2 (08:31→20:43)
[2020-11-10] MEDS: carvediloL 25 MG TABLET PO SCH (08:32)
[2020-11-10] MEDS: AZITHROMYCIN 250 MG TABLET PO SCH (08:32)
[2020-11-10] MEDS: FUROSEMIDE 40 MG/4 ML VIAL IV SCH ×2 (08:32→15:08)
[2020-11-10] MEDS: hydrALAZINE 25 MG TABLET PO SCH ×2 (08:32→20:43)
[2020-11-10] MEDS: ENOXAPARIN 40 MG/0.4 ML SYRINGE SUBCUT SCH (08:32)
[2020-11-10] MEDS: BUDESONIDE/FORMOTEROL 160-4.5 INHALER 6 GM INH SCH ×2 (08:33→20:42)
[2020-11-10] MEDS: cefTRIAXone 1,000 MG in SYRINGE 1 EACH IV SCH (08:33)
[2020-11-10] MEDS ORDERED: FUROSEMIDE 40 MG/4 ML VIAL IV SCH (09:00)
[2020-11-10] MEDS: ACETAMINOPHEN 325 MG TABLET PO PRN (18:04)
[2020-11-10] MEDS ORDERED: IBUPROFEN 600 MG TABLET PO ONE (20:20)
[2020-11-10 23:22] LABS: Barbiturates Screen,Urine Negative (Negative); Benzodiazepines Screen,Urine Negative (Negative); Cannabinoid Screen,Urine Positive (Negative); Opiate Screen,Urine Negative (Negative); Phencyclidine Screen,Urine Negative (Negative)
[2020-11-11] MEDS: ACETAMINOPHEN 325 MG TABLET PO PRN ×2 (01:29→09:07)
[2020-11-11 06:05] LABS: Basophils # 0.1 10*3/uL (0.0-0.2); Basophils % 0.4 % (0.0-0.8); Eosinophils # 0.2 10*3/uL (0.0-0.87); Eosinophils % 1.7 % (0.00-10.9); Hematocrit 37.3 VOL% (35.7-47.0); Hemoglobin 12.1 GM/DL (12.0-16.0); Immature Granulocytes % 0.4 %; Immature Granulocytes Absolute 0.05 #; Lymphocytes # 3.2 10*3/uL (1.4-4.0); Mean Corpuscular HGB Conc 32.4 GM/DL (32-36); Mean Corpuscular Volume 95.2 FL (87-102); Mean Platelet Volume 9.3 FL (9.6-12.0); Monocytes % 5.9 % (1.7-12.7); Neutrophils % 68.6 % (38.7-73.9); Platelet Count 348 T/CUMM (130-400); Red Blood Count 3.92 MC/CUMM (3.8-5.5); Red Cell Distribution Width 15.2 % (9.3-17.3)
[2020-11-11 06:25] LABS: Calcium 8.2 MG/DL (8.5-10.1); Osmolality,Calculated 274.7 MOS/KG (273-304); Potassium 3.6 MMOL/L (3.5-5.1)
[2020-11-11 07:27] VITALS: BP 149/94
[2020-11-11] MEDS: FUROSEMIDE 40 MG/4 ML VIAL IV SCH (09:04)
[2020-11-11] MEDS: cefTRIAXone 1,000 MG in SYRINGE 1 EACH IV SCH ×2 (09:05→10:05)
[2020-11-11] MEDS: ENOXAPARIN 40 MG/0.4 ML SYRINGE SUBCUT SCH (09:05)
[2020-11-11] MEDS: THEOPHYLLINE ER (24 HR) 400 MG CAPSULE PO SCH (09:06)
[2020-11-11] MEDS: AZITHROMYCIN 250 MG TABLET PO SCH (09:06)
[2020-11-11] MEDS: guaiFENesin/DM ER 600-30 MG TABLET PO SCH (09:06)
[2020-11-11] MEDS: BUDESONIDE/FORMOTEROL 160-4.5 INHALER 6 GM INH SCH (09:07)
[2020-11-11] MEDS: LOSARTAN 50 MG TABLET PO SCH (09:07)
[2020-11-11] MEDS: POTASSIUM CHLORIDE 20 MEQ TABLET PO SCH (09:07)
[2020-11-11] MEDS: carvediloL 25 MG TABLET PO SCH (09:08)
[2020-11-11] MEDS: PANTOPRAZOLE 40 MG TABLET PO SCH (09:08)
[2020-11-11] MEDS: hydrALAZINE 25 MG TABLET PO SCH (09:08)
== END 2020-11-11 11:13 | disposition home or self-care (01) | DRG 139 ==
LOC: EDUNIT# → EDBD → N.ED 14:24 → N.EDINP 17:43 → N.5E 19:22
PROVIDERS: ADMIT Internal Medicine; ATTEND Internal Medicine

== ENCOUNTER 2021-04-23 14:45 | Inpatient (IN) ==
[2021-04-23] MEDS ORDERED: SODIUM CHLORIDE 0.9% 1,000 ML IV STA (17:26)
[2021-04-23] MEDS ORDERED: DEXAMETHASONE 4 MG/1 ML VIAL IV STA (17:26)
[2021-04-23] MEDS ORDERED: cefTRIAXone 1,000 MG in SODIUM CHLORIDE 0.9% 100 ML IV STA (17:26)
[2021-04-23 18:33] LABS: Basophils % 0.4 % (0.0-0.8); Eosinophils % 0.3 % (0.00-10.9); Hematocrit 37.1 VOL% (35.7-47.0); Hemoglobin 12.2 GM/DL (12.0-16.0); Immature Granulocytes % 0.4 %; Immature Granulocytes Absolute 0.03 #; Lymphocytes # 1.7 10*3/uL (1.4-4.0); Lymphocytes % 24.6 % (21.3-54.2); Mean Corpuscular HGB Conc 32.9 GM/DL (32-36); Mean Corpuscular Volume 91.6 FL (87-102); Mean Platelet Volume 9.9 FL (9.6-12.0); Monocytes % 7.9 % (1.7-12.7); Neutrophils % 66.4 % (38.7-73.9); Platelet Count 283 T/CUMM (130-400); Red Blood Count 4.05 MC/CUMM (3.8-5.5); Red Cell Distribution Width 13.9 % (9.3-17.3)
[2021-04-23 18:58] LABS: Alanine Aminotransferase 24 U/L (13-56); Albumin 2.8 G/DL (3.4-5.0); Alkaline Phosphatase 56 U/L (45-117); Aspartate Amino Transferase 22 U/L (0-37); Blood Urea Nitrogen 11 MG/DL (7-18); Calcium 8.3 MG/DL (8.5-10.1); Carbon Dioxide 26 MMOL/L (21-32); Estimated Glom Filtration Rate 122 ML/MIN; Ferritin 162.6 ng/mL (8-252); Glucose 86 MG/DL (74-106); Osmolality,Calculated 272.7 MOS/KG (273-304); Potassium 4.2 MMOL/L (3.5-5.1); Sodium 138 MMOL/L (136-145); Total Protein 7.5 G/DL (6.4-8.2)
[2021-04-23] MEDS ORDERED: guaiFENesin/DM ER 600-30 MG TABLET PO PRN (21:02)
[2021-04-23] MEDS ORDERED: ONDANSETRON 4 MG/2 ML VIAL IV PRN (21:02)
[2021-04-23] MEDS ORDERED: GLUCAGON 1 MG VIAL IM PRN (21:02)
[2021-04-23] MEDS ORDERED: hydrALAZINE 20 MG/1 ML VIAL IV PRN (21:02)
[2021-04-23] MEDS ORDERED: DEXTROSE 50% 25 GM/50 ML VIAL IV PRN (21:02)
[2021-04-23] MEDS ORDERED: AZITHROMYCIN INJ 500 MG in SODIUM CHLORIDE 0.9% 250 ML IV ONE (21:15)
[2021-04-23] MEDS ORDERED: ENOXAPARIN 40 MG/0.4 ML SYRINGE SUBCUT SCH (21:30)
[2021-04-23] MEDS: SODIUM CHLORIDE 0.9% 1,000 ML IV SCH (22:00)
[2021-04-23] MEDS: ACETAMINOPHEN 325 MG TABLET PO PRN (22:00)
[2021-04-24] MEDS ORDERED: REMDESIVIR 200 MG in SODIUM CHLORIDE 0.9% 210 ML IV ONE (01:00)
[2021-04-24 05:47] LABS: Basophils % 0.3 % (0.0-0.8); Hematocrit 40.4 VOL% (35.7-47.0); Hemoglobin 12.6 GM/DL (12.0-16.0); Immature Granulocytes % 0.3 %; Immature Granulocytes Absolute 0.01 #; Lymphocytes % 25.4 % (21.3-54.2); Mean Corpuscular HGB Conc 31.2 GM/DL (32-36); Mean Corpuscular Volume 95.1 FL (87-102); Mean Platelet Volume 9.7 FL (9.6-12.0); Monocytes % 4.2 % (1.7-12.7); Neutrophils % 69.8 % (38.7-73.9); Platelet Count 294 T/CUMM (130-400); Red Blood Count 4.25 MC/CUMM (3.8-5.5); Red Cell Distribution Width 14.1 % (9.3-17.3); White Blood Count 3.8 T/CUMM (4-12)
[2021-04-24 06:08] LABS: Bacteria,Urine Occasional /HPF (Few); Bilirubin,Urine Negative (Negative); Blood, Urine Large mg/dL (Negative); Glucose,Urine (UA) Negative (Negative); Ketones,Urine Negative (Negative); Mucus,Urine Occasional /LPF (Occasional); Nitrite,Urine Negative (Negative); Protein,Urine 100 MG/DL; RBC,Urine 32 /HPF (0-4); Squamous Epithelial Cell,Urine Occasional /HPF (0-10); Urine Appearance Slightly Hazy (Clear); Urine Color Yellow (Yellow); Urine Specific Gravity 1.016 (1.001-1.035)
[2021-04-24 06:17] LABS: Hypochromasia 1+; Microcytosis 1+; Platelet Estimate Adequate
[2021-04-24 06:30] LABS: Osmolality,Calculated 279.4 MOS/KG (273-304); Potassium 4.7 MMOL/L (3.5-5.1); Risk Ratio 5.33; Thyroid Stimulating Hormone 0.543 uIU/ml (0.358-3.74); VLDL Cholesterol 18.8 MG/DL
[2021-04-24] MEDS ORDERED: DEXAMETHASONE 10 MG/1 ML VIAL IV SCH (09:00)
[2021-04-24] MEDS: ACETAMINOPHEN 325 MG TABLET PO PRN (09:29)
[2021-04-24] MEDS: PANTOPRAZOLE 40 MG TABLET PO SCH (09:29)
[2021-04-24] MEDS: carvediloL 25 MG TABLET PO SCH (09:29)
[2021-04-24] MEDS: CETIRIZINE 10 MG TABLET PO SCH (09:29)
[2021-04-24] MEDS: hydrALAZINE 25 MG TABLET PO SCH ×2 (09:30→21:16)
[2021-04-24] MEDS: AZITHROMYCIN 250 MG TABLET PO SCH (09:30)
[2021-04-24] MEDS: CHOLECALCIFEROL 1,000 UNIT TABLET PO SCH (09:30)
[2021-04-24] MEDS: ZINC GLUCONATE 50 MG TABLET PO SCH (09:30)
[2021-04-24] MEDS: ASCORBIC ACID 500 MG TABLET PO SCH ×2 (09:31→21:16)
[2021-04-24 10:38] LABS: ABG Base Excess -1.5 MMOL/L (-2.5-2.5); ABG HCO3 22.2 MMOL/L (20-26); ABG Oxygen Saturation 92.1 % (95-100); ABG PCO2 34.6 MM HG (35-48); ABG PH 7.426 (7.35-7.45); ABG PO2 66.8 MM HG (80-95); ABG TCO2 23.3 MMOL/L (23-27)
[2021-04-24] MEDS: POTASSIUM CHLORIDE 20 MEQ TABLET PO SCH (11:16)
[2021-04-24] MEDS: ENOXAPARIN 40 MG/0.4 ML SYRINGE SUBCUT SCH ×2 (11:16→21:16)
[2021-04-24] MEDS: LOSARTAN 50 MG TABLET PO SCH (11:16)
[2021-04-24] MEDS: methylPREDNISolone SOD SUC 40 MG/1 ML VIAL IV SCH ×2 (11:16→21:16)
[2021-04-24] MEDS: FUROSEMIDE 40 MG TABLET PO SCH (13:30)
[2021-04-24] MEDS: SODIUM CHLORIDE 0.9% 1,000 ML IV SCH (23:19)
[2021-04-25] MEDS ORDERED: REMDESIVIR 100 MG in SODIUM CHLORIDE 0.9% 100 ML IV SCH (01:00)
[2021-04-25 06:30] LABS: Hematocrit 38.7 VOL% (35.7-47.0); Hemoglobin 12.7 GM/DL (12.0-16.0); Immature Granulocytes % 0.6 %; Immature Granulocytes Absolute 0.04 #; Lymphocytes # 1.4 10*3/uL (1.4-4.0); Lymphocytes % 19.8 % (21.3-54.2); Mean Corpuscular HGB Conc 32.8 GM/DL (32-36); Mean Corpuscular Volume 91.7 FL (87-102); Mean Platelet Volume 9.7 FL (9.6-12.0); Monocytes % 4.3 % (1.7-12.7); Neutrophils % 75.3 % (38.7-73.9); Red Blood Count 4.22 MC/CUMM (3.8-5.5); Red Cell Distribution Width 13.8 % (9.3-17.3)
[2021-04-25 06:37] LABS: Platelet Count 361 T/CUMM (130-400)
[2021-04-25 06:49] LABS: Hypochromasia 1+; Lymphocytes 11 % (20-55); Microcytosis 1+; Platelet Estimate Adequate; Segmented Neutrophils 87 % (50-85); Total Cells Counted 100
[2021-04-25 06:58] LABS: Calcium 8.5 MG/DL (8.5-10.1); Osmolality,Calculated 279.5 MOS/KG (273-304); Potassium 4.5 MMOL/L (3.5-5.1)
[2021-04-25] MEDS: POTASSIUM CHLORIDE 20 MEQ TABLET PO SCH (08:47)
[2021-04-25] MEDS: ZINC GLUCONATE 50 MG TABLET PO SCH (08:47)
[2021-04-25] MEDS: CHOLECALCIFEROL 1,000 UNIT TABLET PO SCH (08:47)
[2021-04-25 08:48] LABS: ABG HCO3 22.6 MMOL/L (20-26); ABG Oxygen Saturation 93.8 % (95-100); ABG PCO2 38.3 MM HG (35-48); ABG PH 7.389 (7.35-7.45); ABG PO2 75.3 MM HG (80-95); ABG TCO2 23.8 MMOL/L (23-27)
[2021-04-25] MEDS: LOSARTAN 50 MG TABLET PO SCH (08:48)
[2021-04-25] MEDS: FUROSEMIDE 40 MG TABLET PO SCH (08:48)
[2021-04-25] MEDS: ASCORBIC ACID 500 MG TABLET PO SCH (08:48)
[2021-04-25] MEDS: carvediloL 25 MG TABLET PO SCH (08:48)
[2021-04-25] MEDS: hydrALAZINE 25 MG TABLET PO SCH (08:48)
[2021-04-25] MEDS: PANTOPRAZOLE 40 MG TABLET PO SCH (08:48)
[2021-04-25] MEDS: CETIRIZINE 10 MG TABLET PO SCH (08:48)
[2021-04-25] MEDS: ENOXAPARIN 40 MG/0.4 ML SYRINGE SUBCUT SCH (08:49)
[2021-04-25] MEDS: AZITHROMYCIN 250 MG TABLET PO SCH (08:49)
[2021-04-25] MEDS: methylPREDNISolone SOD SUC 40 MG/1 ML VIAL IV SCH (08:49)
[2021-04-25] MEDS: ACETAMINOPHEN 325 MG TABLET PO PRN (08:52)
[2021-04-25 11:57] VITALS: BP 131/82
== END 2021-04-25 12:30 | disposition home or self-care (01) | DRG 137 ==
LOC: EDUNIT# → EDBD → N.ED 14:45 → N.EDINP 21:02 → N.2E 22:19
PROVIDERS: ADMIT Internal Medicine; ATTEND Internal Medicine

== ENCOUNTER 2021-07-30 16:01 | Inpatient (IN) ==
[2021-07-30] MEDS ORDERED: FUROSEMIDE 100 MG/10 ML VIAL IV STA (16:32)
[2021-07-30 17:17] LABS: Basophils # 0.1 10*3/uL (0.0-0.2); Basophils % 0.4 % (0.0-0.8); Eosinophils # 0.1 10*3/uL (0.0-0.87); Eosinophils % 0.9 % (0.00-10.9); Hematocrit 40.6 VOL% (35.7-47.0); Hemoglobin 12.2 GM/DL (12.0-16.0); Immature Granulocytes % 0.5 %; Immature Granulocytes Absolute 0.06 #; Lymphocytes # 1.7 10*3/uL (1.4-4.0); Lymphocytes % 15.2 % (21.3-54.2); Mean Corpuscular Volume 94.4 FL (87-102); Mean Platelet Volume 9.3 FL (9.6-12.0); Monocytes % 4.7 % (1.7-12.7); NRBC # 0.05 10*3/uL; Neutrophils % 78.3 % (38.7-73.9); Platelet Count 386 T/CUMM (130-400); Red Cell Distribution Width 16.6 % (9.3-17.3); White Blood Count 11.4 T/CUMM (4-12)
[2021-07-30 17:19] LABS: ABG Base Excess 3.3 MMOL/L (-2.5-2.5); ABG PCO2 57.8 MM HG (35-48); ABG PH 7.334 (7.35-7.45); ABG PO2 54.3 MM HG (80-95); ABG TCO2 27.5 MMOL/L (23-27)
[2021-07-30 17:29] LABS: INR 1.1; PT Patient Result 11.9 SECS (10.5-12.0); Partial Thromboplastin Time 24.5 SECS (23.8-32.1)
[2021-07-30 17:43] LABS: Bilirubin,Total 0.5 MG/DL (0.20-1.00); Osmolality,Calculated 280.3 MOS/KG (273-304); Potassium 4.5 MMOL/L (3.5-5.1); Total Protein 8.2 G/DL (6.4-8.2)
[2021-07-30] MEDS ORDERED: ONDANSETRON 4 MG/2 ML VIAL IV PRN (18:39)
[2021-07-30] MEDS ORDERED: ACETAMINOPHEN 325 MG TABLET PO PRN (18:39)
[2021-07-30] MEDS ORDERED: hydrALAZINE 20 MG/1 ML VIAL IV PRN (18:39)
[2021-07-30] MEDS ORDERED: GLUCAGON 1 MG VIAL IM PRN (18:39)
[2021-07-30 18:45] LABS: Barbiturates Screen,Urine Negative (Negative); Benzodiazepines Screen,Urine Negative (Negative); Cannabinoid Screen,Urine Positive (Negative); Opiate Screen,Urine Negative (Negative); Phencyclidine Screen,Urine Negative (Negative)
[2021-07-30] MEDS ORDERED: DEXTROSE 50% 25 GM/50 ML SYRINGE IV PRN (18:47)
[2021-07-30 19:54] LABS: Thyroid Stimulating Hormone 1.38 uIU/ml (0.358-3.74)
[2021-07-30] MEDS: ENOXAPARIN 40 MG/0.4 ML SYRINGE SUBCUT SCH (22:50)
[2021-07-30] MEDS: FUROSEMIDE 40 MG/4 ML VIAL IV SCH (22:50)
[2021-07-30] MEDS: carvediloL 6.25 MG TABLET PO SCH (22:50)
[2021-07-30] MEDS: methylPREDNISolone SOD SUC 40 MG/1 ML VIAL IV SCH (22:53)
[2021-07-31] MEDS: methylPREDNISolone SOD SUC 40 MG/1 ML VIAL IV SCH ×2 (03:48→13:54)
[2021-07-31 04:06] LABS: ABG Base Excess 4.4 MMOL/L (-2.5-2.5); ABG HCO3 32.4 MMOL/L (20-26); ABG Oxygen Saturation 86.7 % (95-100); ABG PCO2 65.3 MM HG (35-48); ABG PH 7.314 (7.35-7.45); ABG PO2 57.7 MM HG (80-95); ABG TCO2 34.4 MMOL/L (23-27)
[2021-07-31] MEDS ORDERED: PNEUMOCOCCAL VACCINE (23 VALENT) 0.5 ML VIAL IM ONE (04:57)
[2021-07-31 07:13] LABS: Basophils # 0.1 10*3/uL (0.0-0.2); Basophils % 0.4 % (0.0-0.8); Hematocrit 41.6 VOL% (35.7-47.0); Hemoglobin 12.6 GM/DL (12.0-16.0); Immature Granulocytes % 0.5 %; Immature Granulocytes Absolute 0.06 #; Lymphocytes # 0.8 10*3/uL (1.4-4.0); Lymphocytes % 6.2 % (21.3-54.2); Mean Corpuscular HGB Conc 30.3 GM/DL (32-36); Mean Corpuscular Volume 94.5 FL (87-102); Mean Platelet Volume 9.7 FL (9.6-12.0); Monocytes % 0.4 % (1.7-12.7); NRBC # 0.03 10*3/uL; Neutrophils % 92.5 % (38.7-73.9); Platelet Count 416 T/CUMM (130-400); Red Cell Distribution Width 16.1 % (9.3-17.3); White Blood Count 12.3 T/CUMM (4-12)
[2021-07-31 07:39] LABS: Albumin 3.1 G/DL (3.4-5.0); Bilirubin,Total 0.4 MG/DL (0.20-1.00); Calcium 9.3 MG/DL (8.5-10.1); Osmolality,Calculated 276.8 MOS/KG (273-304); Potassium 4.6 MMOL/L (3.5-5.1); Risk Ratio 4.8; Total Protein 8.5 G/DL (6.4-8.2); VLDL Cholesterol 15.2 MG/DL
[2021-07-31 07:43] LABS: Hypochromasia Slight; Lymphocytes 7 % (20-55); Microcytosis Slight; Platelet Estimate Adequate; Segmented Neutrophils 93 % (50-85); Total Cells Counted 100
[2021-07-31] MEDS: PANTOPRAZOLE 40 MG TABLET PO SCH (10:10)
[2021-07-31] MEDS: carvediloL 6.25 MG TABLET PO SCH ×2 (10:10→16:41)
[2021-07-31] MEDS: AZITHROMYCIN 250 MG TABLET PO SCH (10:11)
[2021-07-31] MEDS: ASPIRIN CHEW 81 MG TABLET PO SCH (10:11)
[2021-07-31] MEDS: LOSARTAN 25 MG TABLET PO SCH (10:11)
[2021-07-31] MEDS: NICOTINE 21 MG/24 HR PATCH TRANSDERM SCH (10:12)
[2021-07-31] MEDS: FUROSEMIDE 40 MG/4 ML VIAL IV SCH ×2 (10:13→16:42)
[2021-07-31] MEDS: ENOXAPARIN 40 MG/0.4 ML SYRINGE SUBCUT SCH (20:00)
[2021-08-01 04:08] LABS: ABG HCO3 33.4 MMOL/L (20-26); ABG Oxygen Saturation 97.9 % (95-100); ABG PH 7.253 (7.35-7.45); ABG PO2 116.1 MM HG (80-95); ABG TCO2 35.7 MMOL/L (23-27)
[2021-08-01 04:11] LABS: ABG PCO2 77.3 MM HG (35-48)
[2021-08-01 05:40] LABS: Calcium 9.1 MG/DL (8.5-10.1); Osmolality,Calculated 279.7 MOS/KG (273-304); Potassium 4.6 MMOL/L (3.5-5.1)
[2021-08-01 05:58] LABS: Basophils % 0.1 % (0.0-0.8); Hematocrit 40.8 VOL% (35.7-47.0); Hemoglobin 12.3 GM/DL (12.0-16.0); Immature Granulocytes % 0.4 %; Immature Granulocytes Absolute 0.06 #; Lymphocytes # 0.9 10*3/uL (1.4-4.0); Lymphocytes % 6.3 % (21.3-54.2); Mean Corpuscular HGB Conc 30.1 GM/DL (32-36); Mean Corpuscular Volume 95.3 FL (87-102); Mean Platelet Volume 10.2 FL (9.6-12.0); Monocytes % 5.5 % (1.7-12.7); NRBC # 0.03 10*3/uL; Neutrophils % 87.7 % (38.7-73.9); Platelet Count 423 T/CUMM (130-400); Red Blood Count 4.28 MC/CUMM (3.8-5.5); Red Cell Distribution Width 16.3 % (9.3-17.3); White Blood Count 14.9 T/CUMM (4-12)
[2021-08-01] MEDS: carvediloL 6.25 MG TABLET PO SCH (09:19)
[2021-08-01] MEDS: PANTOPRAZOLE 40 MG TABLET PO SCH (09:19)
[2021-08-01] MEDS: LOSARTAN 25 MG TABLET PO SCH (09:19)
[2021-08-01] MEDS: ASPIRIN CHEW 81 MG TABLET PO SCH (09:19)
[2021-08-01] MEDS: AZITHROMYCIN 250 MG TABLET PO SCH (09:19)
[2021-08-01] MEDS: NICOTINE 21 MG/24 HR PATCH TRANSDERM SCH (09:20)
[2021-08-01] MEDS: FUROSEMIDE 40 MG/4 ML VIAL IV SCH ×2 (09:20→16:49)
[2021-08-01] MEDS: carvediloL 12.5 MG TABLET PO SCH (16:49)
[2021-08-01] MEDS: ENOXAPARIN 40 MG/0.4 ML SYRINGE SUBCUT SCH (21:26)
[2021-08-02 03:56] LABS: ABG Base Excess 3.7 MMOL/L (-2.5-2.5); ABG HCO3 27.7 MMOL/L (20-26); ABG Oxygen Saturation 97.2 % (95-100); ABG PH 7.275 (7.35-7.45); ABG TCO2 29.8 MMOL/L (23-27)
[2021-08-02 04:00] LABS: ABG PCO2 70.9 MM HG (35-48)
[2021-08-02 05:55] LABS: Calcium 8.3 MG/DL (8.5-10.1); Osmolality,Calculated 288.3 MOS/KG (273-304); Potassium 3.8 MMOL/L (3.5-5.1)
[2021-08-02] MEDS: carvediloL 12.5 MG TABLET PO SCH ×2 (09:05→16:42)
[2021-08-02] MEDS: LOSARTAN 25 MG TABLET PO SCH (09:05)
[2021-08-02] MEDS: AZITHROMYCIN 250 MG TABLET PO SCH (09:05)
[2021-08-02] MEDS: PANTOPRAZOLE 40 MG TABLET PO SCH (09:06)
[2021-08-02] MEDS: ASPIRIN CHEW 81 MG TABLET PO SCH (09:06)
[2021-08-02] MEDS: FUROSEMIDE 40 MG/4 ML VIAL IV SCH ×2 (09:06→16:42)
[2021-08-02] MEDS: NICOTINE 21 MG/24 HR PATCH TRANSDERM SCH (09:07)
[2021-08-02] MEDS: ENOXAPARIN 40 MG/0.4 ML SYRINGE SUBCUT SCH (20:26)
[2021-08-03 06:15] LABS: Calcium 8.8 MG/DL (8.5-10.1); Osmolality,Calculated 284.5 MOS/KG (273-304); Potassium 4.2 MMOL/L (3.5-5.1)
[2021-08-03] MEDS ORDERED: PNEUMOCOCCAL VACCINE (23 VALENT) 0.5 ML VIAL IM ONE ×2 (09:00→09:30)
[2021-08-03] MEDS: FUROSEMIDE 40 MG/4 ML VIAL IV SCH ×2 (09:33→16:34)
[2021-08-03] MEDS: LOSARTAN 25 MG TABLET PO SCH (09:34)
[2021-08-03] MEDS: carvediloL 12.5 MG TABLET PO SCH ×2 (09:34→16:34)
[2021-08-03] MEDS: AZITHROMYCIN 250 MG TABLET PO SCH (09:34)
[2021-08-03] MEDS: NICOTINE 21 MG/24 HR PATCH TRANSDERM SCH (09:34)
[2021-08-03] MEDS: ASPIRIN CHEW 81 MG TABLET PO SCH (09:34)
[2021-08-03] MEDS: PANTOPRAZOLE 40 MG TABLET PO SCH (09:34)
[2021-08-03] MEDS: predniSONE 20 MG TABLET PO SCH (16:34)
[2021-08-03] MEDS ORDERED: TEMAZEPAM 15 MG CAPSULE PO PRN (20:48)
[2021-08-03] MEDS: BUDESONIDE/FORMOTEROL 160-4.5 INHALER 6 GM INH SCH (21:29)
[2021-08-03] MEDS: ENOXAPARIN 40 MG/0.4 ML SYRINGE SUBCUT SCH (21:29)
[2021-08-04] MEDS: ASPIRIN CHEW 81 MG TABLET PO SCH (08:38)
[2021-08-04] MEDS: LOSARTAN 25 MG TABLET PO SCH (08:38)
[2021-08-04] MEDS: AZITHROMYCIN 250 MG TABLET PO SCH (08:38)
[2021-08-04] MEDS: THEOPHYLLINE ER (24 HR) 400 MG CAPSULE PO SCH (08:38)
[2021-08-04] MEDS: PANTOPRAZOLE 40 MG TABLET PO SCH (08:39)
[2021-08-04] MEDS: predniSONE 20 MG TABLET PO SCH (08:39)
[2021-08-04] MEDS: carvediloL 12.5 MG TABLET PO SCH ×2 (08:39→16:18)
[2021-08-04] MEDS: NICOTINE 21 MG/24 HR PATCH TRANSDERM SCH (08:41)
[2021-08-04] MEDS: BUDESONIDE/FORMOTEROL 160-4.5 INHALER 6 GM INH SCH ×2 (08:45→21:24)
[2021-08-04] MEDS: FUROSEMIDE 40 MG/4 ML VIAL IV SCH ×2 (08:46→16:18)
[2021-08-04] MEDS: ENOXAPARIN 40 MG/0.4 ML SYRINGE SUBCUT SCH (21:24)
[2021-08-05] MEDS: ASPIRIN CHEW 81 MG TABLET PO SCH (12:45)
[2021-08-05] MEDS: LOSARTAN 25 MG TABLET PO SCH (12:45)
[2021-08-05] MEDS: FUROSEMIDE 40 MG/4 ML VIAL IV SCH ×2 (12:45→16:05)
[2021-08-05] MEDS: BUDESONIDE/FORMOTEROL 160-4.5 INHALER 6 GM INH SCH (12:45)
[2021-08-05] MEDS: PANTOPRAZOLE 40 MG TABLET PO SCH (12:45)
[2021-08-05] MEDS: carvediloL 12.5 MG TABLET PO SCH (12:45)
[2021-08-05] MEDS: THEOPHYLLINE ER (24 HR) 400 MG CAPSULE PO SCH (12:45)
[2021-08-05] MEDS: NICOTINE 21 MG/24 HR PATCH TRANSDERM SCH (12:45)
[2021-08-05] MEDS: predniSONE 20 MG TABLET PO SCH (12:45)
[2021-08-05] MEDS: AZITHROMYCIN 250 MG TABLET PO SCH (12:45)
[2021-08-05 22:04] VITALS: BP 135/77
== END 2021-08-05 16:50 | disposition home health service (06) | DRG 194 ==
LOC: N.ED 16:01 → N.EDINP 16:01 → N.TELES 21:12 → SUATTDRO 07-31 10:34
PROVIDERS: ADMIT Emergency Medicine; ATTEND Internal Medicine